=== PATIENT | male | born 1965 | race Caucasian/White ===

== ENCOUNTER 2018-02-19 17:19 | Emergency (ER) | payer OTHER ==
--- NOTE | 2018-02-19 18:44 | EDPHY ---
H & P Time Seen by Provider: 02/19/18 18:30 HPI/ROS: Chief complaint. Tree fell on right side HPI. 52-year-old male presents emergency department after a tree fell on his right side. He was in a [place] and apparently pulled the tree over. He sought coming. It struck his right back. He has pain to his right back especially with movement and with deep breathing. He has pain to the right flank area but no anterior abdominal pain. No head injury or neck pain. Initially paresthesias and tingling to the right upper extremity. However no injury to the arm or to the neck. ROS Constitutional. no fever/chills, no weakness Eyes. no problems with vision ENT. no sore throat, no nasal drainage Cardiovascular. Right posterior chest pain Respiratory. No shortness of breath or cough but pain with deep breathing Abdominal. no abdominal pain, no nausea/vomiting, no diarrhea . no problems urinating MS. no calf pain/swelling, no neck/back pain, no joint pain Skin. Abrasion right back Lymph. no swollen glands Neuro. no headache, no dizziness, no difficulty walking or with speech Past Medical/Surgical History: Healthy Social History: , nonsmoker, no alcohol Smoking Status: Never smoked Physical Exam: General Appearance: Alert well-developed male moderate distress vital signs are stable Eyes: Pupils equal and round no pallor or injection. ENT, Mouth: Mucous membranes are moist. Respiratory: There are no retractions, lungs are clear to auscultation. Cardiovascular: Regular rate and rhythm. Gastrointestinal: Abdomen is soft and nontender, no masses, bowel sounds normal. Neurological: Awake and alert, sensory and motor exams grossly normal. Skin: Warm and dry, no rashes. Musculoskeletal: Neck is supple nontender. TLS spine is also nontender. Abrasion and tenderness below the right scapula. Some right flank tenderness. A Extremities symmetrical, full range of motion. Psychiatric: Patient is oriented X 3, there is no agitation. Constitutional: Initial Vital Signs Temperature (C) 36.8 C 02/19/18 17:23 Heart Rate 73 02/19/18 17:23 Respiratory Rate 19 02/19/18 17:23 Blood Pressure 136/88 H 02/19/18 17:23 O2 Sat (%) 96 02/19/18 17:23 O2 Delivery Mode Room Air Allergies/Adverse Reactions: No Known Allergies Allergy (Verified 11/27/13 13:48) Home Medications: Medication Instructions Recorded NK [No Known Home Meds] 02/19/18 Medical Decision Making - Diagnostics Imaging Results: Imaging Impressions Chest X-Ray 02/19/18 19:02 Impression: No acute pulmonary disease. Chest x-ray interpreted by me shows no fracture or pneumothorax Procedures: Patient declines CT imaging. Oral ibuprofen ED Course/Re-evaluation: Re-evaluation 7:25 pm--patient is stable and without complaints. He and I discussed imaging and lab results. We discussed treatment plan including criteria for return importance of follow-up and further evaluation. He expresses understanding and agreement Differential Diagnosis: I considered rib fracture, pneumothorax, kidney injury. - Data Points Laboratory Results: 02/19/18 19:05 Urine Color YELLOW Urine Appearance CLEAR Urine pH 7.0 (5.0-7.5) Ur Specific [place] 1.015 (1.002-1.030) Urine Protein NEGATIVE (NEGATIVE) Urine Ketones NEGATIVE (NEGATIVE) Urine Blood NEGATIVE (NEGATIVE) Urine Nitrate NEGATIVE (NEGATIVE) Urine Bilirubin NEGATIVE (NEGATIVE) Urine Urobilinogen NEGATIVE EU EU (0.2-1.0) Ur Leukocyte Esterase NEGATIVE (NEGATIVE) Urine RBC 1-3 /hpf /hpf (0-3) Urine WBC 1-3 /hpf /hpf (0-3) Ur Epithelial Cells NONE SEEN /lpf /lpf (NONE-1+) Urine Glucose NEGATIVE (NEGATIVE) Medications Given: Discontinued Medications Ibuprofen (Motrin) 600 mg PO EDNOW ONE Stop: 02/19/18 19:03 Last Admin: 02/19/18 19:13 Dose: 600 mg Departure - Departure Disposition: Home, Routine, Self-Care Clinical Impression: Contusion of thoracic wall Qualifiers: Encounter type: initial encounter Contusion of thoracic wall detail: back wall of thorax Laterality: right Qualified Code(s): S20.221A - Contusion of right back wall of thorax, initial encounter Condition: Good Instructions: Contusion in Adults (ED) Additional Instructions: Ice to sore area next 24 hr. Ibuprofen 600 mg every 6 hr for discomfort. Return for worsening pain, worsening breathing, abdominal pain. Re-evaluation in 2-3 days if not improving Referrals: ROXI WOLF [Primary Care Provider] - 2-3 days, if not improved
[2018-02-19] MEDS ORDERED: IBUPROFEN 600 MG TAB PO ONE (19:02)
[2018-02-19 19:54] VITALS: BP 115/72
== END 2018-02-19 19:52 | disposition home or self-care (01) ==
DX: S20.221A Contusion of right back wall of thorax, initial encounter (principal); W20.8XXA Other cause of strike by thrown, projected or falling object, initial encounter